=== PATIENT | female | born 1960 | race Caucasian/White ===

== ENCOUNTER 2024-05-22 09:45 | Outpatient (AMB) | payer OTHER, SELFPAY ==
--- NOTE | 2024-05-22 10:02 | A.OFFPC_ITS ---
Vital Signs 05/22/24 10:12 Height 5 ft 5 in Weight 183 lb 6 oz BMI 30.5 BP 120/66 Blood Pressure Location Lt brachial Position Sitting Respiration 14 Pulse 80 Pulse Source Pulse Oximeter Temp 98.4 F Temp Source Oral Pulse Oximetry (%) 97 Oxygen Delivery Method Room Air Intake Visit Reasons: grants and contracts assistant-cough/mammo f/u Intake Note: establish care Is last menstrual period known: No Post menopausal: Yes Patient : No Allergies No Known Allergies Allergy (Verified 05/22/24 10:08) Medication List - Last Reconciled 05/22/24 by [place] MD No Known Home Meds Tobacco use date assessed: 05/22/24 Dental Screening Dental Screen Date: 05/22/24 Did you have a dental visit in the last 12 months?: No Did you have a dental problem in the last 6 months where you did not have access to dental care?: No Was dental information given to patient?: No HPI grants and contracts assistant-cough/mammo f/u HPI Details New Patient? ?? Prior PCP:?Last PCP in [place] Last office visit/CPE:?> 2yrs Acute issue(s):? Hoarseness since 08/28 after a pneumonia Also Chronic Nose Bleeds ?? PMHx:? L ankle and b/L hip pain & arthritis, Chronic nose bleeds SurgHx:? Cholecystectomy 2019 FHx:? Mom: Hypothyroid Dad: COPD, Lymphoma. Siser hypothyroid, Brother: Myesthenia gravis. SocHx:? Pt is a Chiropractor. Nonsmoker. EtOH 1 drink a month. No drugs PFSH Medical History (Updated 05/22/24 @ 11:01 by Chuck Dyer) History of shingles Total body pain Arthritis Nasal bleeding Hoarseness of voice Chronic cough Surgical History (Updated 05/22/24 @ 10:05 by Moriah Garcia CMA) History of cholecystectomy Family History (Updated 05/22/24 @ 10:07 by Moriah Garcia CMA) Mother Hypothyroidism Father COPD (chronic obstructive pulmonary disease) Sister Hypothyroidism Social History (Updated 05/22/24 @ 10:07 by Moriah Garcia CMA) Housing: Apartment Patient Tobacco Use Status: Never used Tobacco e-Cigarette/Vaping Use: Never Used Second Hand Smoke Exposure: No service: No Current occupational status: employed Current occupation: chripractor Current occupational exposures/hazards: No Cognitive needs: No Hearing needs: No Vision needs: Yes Questionnaire PHQ-9 Over the last 2 weeks, how often have you been bothered by any of the following problems? 1. Little interest or pleasure in doing things: not at all 2. Feeling down, depressed, or hopeless: not at all 3. Trouble falling or staying asleep, or sleeping too much: several days 4. Feeling tired or having little energy: more than half the days 5. Poor appetite or overeating: not at all 6. Feeling bad about yourself - or that you are a failure or have let yourself or your family down: not at all 7. Trouble concentrating on things, such as reading the newspaper or watching television: not at all 8. Moving or speaking so slowly that other people could have noticed. Or the opposite - being so fidgety or restless that you have been moving around a lot more than usual: not at all 9. Thoughts that you would be better off or of hurting yourself in some way: not at all Total score: 3 Depression Screening Interpretation: Negative Depression Screening Done: Yes 72049 - PHQ-9 Billing: Yes Source: Developed by Drs. Joe Garza, Pati Mariano, Robi Hopson and colleagues, with an educational sue from [employer]. Thrive Questionnaire Date Thrive assessed: 05/22/24 I am a: Patient What is your living situation today?: I have a steady place to live Within the past 12 months, did the food you bought not last and you didn't have the money to get more?: Never true Within the past 12 months, did you worry whether your food would run out before you got money to buy more?: Never true Do you have trouble paying for medicines?: No Do you have trouble getting transportation to medical appointments?: No Do you have trouble paying your heating and electricity bill?: No Do you have trouble taking care of your child, family member or friend?: No Do you have trouble with day-to-day activities such as bathing, preparing meals, shopping, managing finances, etc.?: No Are you currently unemployed and looking for a job?: No Are you interested in more education?: No Please select the resources that you would like help with: None Currently or been in a relationship where the following occur: No concerns reported THRIVE Score: 0 AUDIT C Alcohol Use Questionnaire (AUDIT-C) 1. How often do you have a drink containing alcohol?: Monthly or less 2. How many drinks containing alcohol do you have on a typical day when you are drinking?: 1 or 2 3. How often do you have six or more drinks on one occasion?: Never Total Score: 1 MEETA-7 AMB Questionnaire MEETA-7 Date MEETA - 7 assessed: 05/22/24 Feeling nervous, anxious, or on edge: 0 = Not at all Not being able to stop or control worryin = Not at all Worrying too much about different things: 0 = Not at all Trouble relaxin = Not at all Being so restless that it is hard to sit still: 0 = Not at all Becoming easily annoyed or irritable: 0 = Not at all Feeling afraid as if something awful might happen: 0 = Not at all Total MEETA-7 score (0-4 normal; 5-9 mild; 10-14 moderate; 15-21 severe): 0 Source: Developed by Drs. Joe Garza, Pati Mariano, Robi Hopson and colleagues, with an educational sue from [employer]. Review of Systems Const Denies chills, Denies fatigue, Denies fever(s), Denies headache(s) and Denies weakness ENT Denies dizziness and Denies headache(s) Card Denies chest pain, Denies lightheadedness, Denies dyspnea and Denies other (Palpitations) Resp Reports cough, Denies dyspnea and Denies wheezing Musc Denies numbness and Denies tingling Neuro Denies dizziness, Denies headache(s), Denies numbness, Denies tingling, Denies paresthesias and Denies weakness Psych Denies anxiety and Denies depression Endo Denies fatigue Aller/Immun Denies wheezing Physical exam (Primary Care) Vital Signs: Last Vital Signs Temp 98.4 F 05/22/24 10:12 Pulse 80 05/22/24 10:12 Resp 14 05/22/24 10:12 BP 120/66 05/22/24 10:12 Pulse Ox 97 05/22/24 10:12 Oxygen Delivery Method Room Air 05/22/24 10:12 BMI result Body Mass Index 30.5 Tobacco/Smoking Status: Tobacco use Status Tobacco use date assessed 05/22/24 05/22/24 10:16 Patient Tobacco Use Status Never used Tobacco 05/22/24 10:16 e-Cigarette/Vaping Use Never Used 05/22/24 10:16 PHQ-9: PHQ-9 Score PHQ-9: Total score 3 05/22/24 10:40 Depression Screening Interpretation: Negative Thrive Assessment: Date of Thrive Assessment Date Thrive assessed 05/22/24 05/22/24 10:16 Currently or been in a relationship where the following occur: No concerns reported Const General: no acute distress and well developed Nutritional Appearance: well nourished Orientation/consciousness: patient oriented x3 HENMT Head: Yes normocephalic and Yes atraumatic Eyes General: appearance normal, both eyes and all related structures Pupils: Equal, round and reactive pupils present EOM: EOMs intact bilaterally Resp Effort & Inspection: normal respiratory effort Auscultation: clear to auscultation bilaterally Cardio Rate: regular rate Rhythm: regular rhythm Heart sounds: S1 normal heart sound present, S2 normal heart sound present, no gallops, no murmurs and no rubs Neuro General: patient oriented x3 and gait normal Cranial nerves: Yes Equal, round and reactive pupils present Psych Affect: normal affect Coding Level of Care Code New Pt Level 3 (05982) Diagnoses Chronic cough R05.3 Hoarseness of voice R49.0 Left ankle pain M25.572 Bilateral hip pain M25.551; M25.552 Nasal bleeding R04.0 Fatigue R53.83 Breast cancer screening by mammogram Z12.31 Laboratory exam ordered as part of routine general medical examination Z00.00 Additional Codes PHQ-9 - 62538 - PHQ-9 Billing: Yes ([id number]) Assessment & Plan Assessment & Plan (1) Chronic cough: Code(s): R05.3 - Chronic cough Category: Medical Plan: Patient?notes?chronic?cough?and?hoarseness Encouraged?increased?hydration?and?humidified?air Can?try?a?daytime? antihistamine?although?she?is?not?inclined?to?use?p.o.?medications. Referred?to?ENT?at?patient?request (2) Hoarseness of voice: Code(s): R49.0 - Dysphonia Category: Medical Plan: As?above (3) Left ankle pain: Code(s): M25.572 - Pain in left ankle and joints of left foot Category: Medical (4) Bilateral hip pain: Code(s): M25.551 - Pain in right hip; M25.552 - Pain in left hip Category: Medical Plan: Bilateral posterolateral?hip?and?buttocks?pain?and?also?left?ankle?pain. Checking?inflammatory?markers Checking?x-rays?of?lumbar?spine,?hips?left?ankle Patient?requests?referral?to?Ortho-made (5) Nasal bleeding: Code(s): R04.0 - Epistaxis Category: Medical Plan: As?above (6) Fatigue: Code(s): R53.83 - Other fatigue Category: Medical Plan: Checking?inflammatory?markers?for?this?as?well?as?joint?pain?in?hips?and?ankle Will?also?check?Lyme?titer (7) Breast cancer screening by mammogram: Code(s): Z12.31 - Encounter for screening mammogram for malignant neoplasm of breast Category: Medical Plan: Last?mammogram?over?2?years?ago?and?she?did?require?additional?views?after?which ?she?was?told?to?resume?annual?screening. Mammogram?ordered (8) Laboratory exam ordered as part of routine general medical examination: Code(s): Z00.00 - Encounter for general adult medical examination without abnormal findings Category: Medical Plan: Check labs Plan . Orders: Orders Comprehensive Burton. Panel Fast Today Z00.00 - Encounter for general adult med ical examination without abnormal findings Homocysteine Today M25.551 - Pain in right hip, M25.552 - Pain in left hip Rheumatoid Factor Today M25.551 - Pain in right hip, M25.552 - Pain in left hip Thyroid Stimulating Hormone Today E03.9 - Hypothyroidism, unspecified, M25.551 - Pain in right hip, M25.552 - Pain in left hip Free T4 (Free Thyroxine) Today E03.9 - Hypothyroidism, unspecified, M25.551 - Pain in right hip, M25.552 - Pain in left hip XR ankle LT 2V Today M25.572 - Pain in left ankle and joints of left foot Complete Blood Count Auto Diff Today Z00.00 - Encounter for general adult medical examination without abnormal findings Lipid Panel Today Z00.00 - Encounter for general adult medical examination without abnormal findings Microalbumin, Random (w Creat) Today I10 - Essential (primary) hypertension UA and rflx microscopic Today Z00.00 - Encounter for general adult medical examination without abnormal findings Vitamin D 25-OH Total Today E55.9 - Vitamin D deficiency, unspecified Hemoglobin A1c Today R73.01 - Impaired fasting glucose MM tomosynthesis screening BI Today Z12.31 - Encounter for screening mammogram for malignant neoplasm of breast Lyme IgG/IgM w/reflex to WB Today R53.83 - Other fatigue Erythrocyte Sedimentation Rate Today M25.551 - Pain in right hip, M25.552 - Pain in left hip Cyclic Citrullinated Peptide Today M25.551 - Pain in right hip, M25.552 - Pain in left hip Triiodothyronine T3 Total Today E03.9 - Hypothyroidism, unspecified, M25.551 - Pain in right hip, M25.552 - Pain in left hip XR lumbar spine 2-3V Today M25.551 - Pain in right hip, M25.552 - Pain in left hip XR hip BI w PEL 1V Today M25.551 - Pain in right hip, M25.552 - Pain in left hip Referrals Ear/Nose/Throat Referral R04.0 - Epistaxis, R49.0 - Dysphonia Orthopedics Referral M25.551 - Pain in right hip, M25.552 - Pain in left hip, M25.572 - Pain in left ankle and joints of left foot
[2024-05-22 10:12] VITALS: BP 120/66; PULSE 80; RESP 14; TEMP 36.9; O2SAT 97; BMI 30.5
== END 2024-05-22 11:28 | disposition home or self-care (01) ==
PROVIDERS: PCP Family Medicine; Visit Provider Family Medicine
DX: R05.3 Chronic cough (principal); R49.0 Dysphonia; M25.572 Pain in left ankle and joints of left foot; M25.551 Pain in right hip; M25.552 Pain in left hip; R04.0 Epistaxis; R53.83 Other fatigue; Z12.31 Encounter for screening mammogram for malignant neoplasm of breast

== ENCOUNTER 2024-05-22 11:13 | Outpatient (REF) | payer OTHER, SELFPAY ==
[2024-05-22 14:01] LABS: MANUAL DIFF FLAG NO
[2024-05-22 14:10] LABS: Basophils Absolute Auto 0.1 X10*3/uL (0.0-0.2); Basophils Percent Auto 0.9 % (0-2); Eosinophils Absolute Auto 0.2 X10*3/uL (0.0-0.4); Eosinophils Percent Auto 1.7 % (0-4); Hematocrit 47.1 % (37.0-47.0); Hemoglobin 15.2 g/dl (12.0-16.0); Imm Gran Abs Auto 0.07 X10*3/uL (0.00-0.03); Imm Gran Pct Auto 0.8 % (0.0-0.4); Lymphocytes Absolute Auto 2.5 X10*3/uL (1.2-4.9); Lymphocytes Percent Auto 27.4 % (20-40); Mean Corpuscular HGB Conc 32.3 g/dl (31.0-35.0); Mean Corpuscular Volume 89.7 fL (80.0-98.0); Mean Platelet Volume 8.9 fL (9.4-12.3); Monocytes Absolute Auto 0.8 X10*3/uL (0.1-1.2); Monocytes Percent Auto 9.1 % (2-11); Neutrophils Absolute Auto 5.5 x10*3/uL (2.0-8.3); Neutrophils Percent Auto 60.1 % (45-73); Platelet Count 391 X10*3/uL (160-400); Red Blood Count 5.25 X10*6/uL (4.20-5.50); White Blood Count 9.1 X10*3/uL (4.8-10.8)
[2024-05-22 14:18] LABS: Estimated Average Glucose 120 mg/dL; Hemoglobin A1c % 5.8 % (<6.0)
[2024-05-22 14:33] LABS: Alanine Aminotransferase 36 U/L (0-31); Albumin Level 4.2 g/dL (3.5-5.0); Alkaline Phosphatase 83 U/L (39-117); Anion Gap 11 (12-20); Aspartate Amino Transferase 32 U/L (5-31); Bilirubin Total 0.4 mg/dL (0.0-1.0); Blood Urea Nitrogen 12 mg/dL (9-16); Calcium 9.3 mg/dL (8.4-10.2); Carbon Dioxide 26 mmol/L (22-29); Chloride 108 mmol/L (96-108); Cholesterol 246 mg/dL (<200); Estimated Glomerular Filt Rate > 60; Glucose Fasting 89 mg/dL (60-99); HDL Cholesterol 51 mg/dL (>40); LDL Cholesterol Calculated 155 mg/dL (<100); Sodium 141 mmol/L (135-145); Triglycerides 203 mg/dL (<150)
[2024-05-22 14:34] LABS: Creatinine Urine 90.55 mg/dL; Microalbumin Urine < 5.0 mg/L
[2024-05-22 14:36] LABS: Appearance Urine Clear; Color Urine Yellow; Glucose Urine UA Negative (Negative); Leukocyte Esterase Urine Negative (Negative); Nitrite Urine Negative (Negative); Urine Blood Negative (Negative); Urine Ketones Negative (Negative); Urine Protein Negative (Neg-Trace)
[2024-05-22 14:49] LABS: Vitamin D 25-OH Total 61.3 ng/mL (>30)
[2024-05-23 22:24] LABS: Lyme Abs Screen <0.90 index
== END 2024-05-22 11:14 | disposition home or self-care (01) ==
LOC: HO.WFDLDS 11:13
PROVIDERS: Visit Provider Family Medicine
DX: Z00.00 Encounter for general adult medical examination without abnormal findings (principal); I10 Essential (primary) hypertension; R53.83 Other fatigue; E55.9 Vitamin D deficiency, unspecified; R73.01 Impaired fasting glucose
CPT/HCPCS: 36415; 80053; 80061; 81003; 82043; 82306; 82570; 83036; 85025; 86617; 86618

== ENCOUNTER 2024-06-14 09:14 | Outpatient (REF) | payer OTHER, SELFPAY ==
--- NOTE | ~2024-06-14 | XR_ITS ---
CLINICAL HISTORY: M25.551 - Pain in right hip 3 views lumbar spine Comparison: None Findings: Normal vertebral body alignment. No acute fractures or dislocation. No significant degenerative change. IMPRESSION: No acute findings. This document has been electronically signed by: Tyson Dobson MD on 06/17/2024 06:27:30
--- NOTE | ~2024-06-14 | XR_ITS ---
CLINICAL HISTORY: M25.572 - Pain in left ankle and joints of left foot 3 view left ankle Comparison: None Findings: No acute fracture or dislocation is identified. Soft tissue structures appear intact. IMPRESSION: 1. No acute abnormality is identified. This document has been electronically signed by: Shakira Low on 06/17/2024 09:02:45
--- NOTE | ~2024-06-14 | XR_ITS ---
CLINICAL HISTORY: Right hip pain. 2 view, pelvis and right hip Comparison: CR - XR HIP LT MIN 2V - 06/14/24 09:38 EST CR - XR LUMBAR SPINE 2-3V - 06/14/24 09:30 EST Findings: No acute fracture or dislocation. There are relatively severe degenerative changes associated with generalized joint space narrowing more significant superiorly. The soft tissues are unremarkable. IMPRESSION: Relatively severe osteoarthritic changes with joint space narrowing particularly superiorly. No acute abnormalities are noted. This document has been electronically signed by: Tyson Dobson MD on 06/17/2024 06:28:03
--- NOTE | ~2024-06-14 | XR_ITS ---
CLINICAL HISTORY: Pain in left hip. 2 view eft hip Comparison: None Findings: There is mild left hip joint space narrowing. No dislocation. There is mild subchondral sclerosis and osteophyte formation of the left femoral head and acetabulum. No acute fractures IMPRESSION: Osteoarthrosis left hip This document has been electronically signed by: Joe Dimas MD on 06/17/2024 08:42:57
[2024-06-14 11:36] LABS: Rheumatoid Factor < 13.0 IU/mL (<15.0)
[2024-06-14 11:55] LABS: Erythrocyte Sedimentation Rate 5 MM/HR (0-20)
[2024-06-14 11:57] LABS: Free T4 (Free Thyroxine) 0.99 ng/dL (0.71-1.85); Thyroid Stimulating Hormone 3.39 uIU/mL (0.32-4.0)
[2024-06-15 08:58] LABS: Triiodothyronine T3 Total 130 ng/dL (76-181)
[2024-06-16 18:39] LABS: Thyroid Peroxidase Antibodies 111 IU/mL (<9)
[2024-06-17 13:48] LABS: Cyclic Citrullinated Peptide <16 UNITS
== END 2024-06-14 09:15 | disposition home or self-care (01) ==
LOC: HO.HMGCX 09:14
PROVIDERS: PCP Family Medicine; Visit Provider Family Medicine
DX: M25.551 Pain in right hip (principal); M25.552 Pain in left hip; E03.9 Hypothyroidism, unspecified; R53.83 Other fatigue; M25.572 Pain in left ankle and joints of left foot
CPT/HCPCS: 36415; 72100; 73502; 73610; 84439; 84443; 84480; 85652; 86200; 86376; 86431

== ENCOUNTER → 2024-06-14 09:18 | Outpatient (BNV) | payer OTHER, SELFPAY | PROVIDERS: PCP Family Medicine; Visit Provider Radiology Diagnostic Radiology | DX: M25.551 Pain in right hip (principal) | CPT/HCPCS: 72100; 73502 ==

== ENCOUNTER 2024-06-17 09:26 | Outpatient (AMB) | payer OTHER, SELFPAY ==
--- NOTE | 2024-06-17 09:41 | MHC.OFFVIS ---
Vital Signs 06/17/24 09:47 Height 5 ft 5 in Weight 183 lb BMI 30.4 Handedness Right Intake Visit Reasons: New Pt - B/L hip pain Intake Note: Anitra is a 63 year old female who presents today as a new patient for a evaluation of her bilateral hip pain. Patient reports off and on pain for about 10 years. Patient informed me that on 2018 her pain had gotten worse. She states that her right hip is worse than her left hip. Patient notices that her pain is worse when she is on her feet all day at work. Her pain is located on the glutes. Patient has tried and failed Advil. Allergies No Known Allergies Allergy (Verified 06/17/24 09:47) HPI HPI New Pt - B/L hip pain: Details: Ms. 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 She reports that in 2018 she did see an orthopedic surgeon who recommended total hip arthroplasty as she had developed significant osteoarthritis. Over the past few years her pain has become more consistent. However, she is still able to perform most of her daily activities without discomfort or with the use of anti-inflammatories as needed. Standing for long periods of time 10 to increase her pain. She did switch jobs and is on a different helena which she believes is attributing to an increase in pain. [facility] Medical History (Updated 06/17/24 @ 10:42 by Laura Mcrcary PA-C) History of shingles Total body pain Arthritis Nasal bleeding Hoarseness of voice Chronic cough Surgical History (Updated 05/22/24 @ 10:05 by Moriah Garcia CMA) History of cholecystectomy Family History (Updated 05/22/24 @ 10:07 by Moriah Garcia CMA) Mother Hypothyroidism Father COPD (chronic obstructive pulmonary disease) Sister Hypothyroidism Social History Housing: Apartment Patient Tobacco Use Status: Never used Tobacco e-Cigarette/Vaping Use: Never Used Second Hand Smoke Exposure: No service: No Current occupational status: employed Current occupation: chripractor Current occupational exposures/hazards: No Cognitive needs: No Hearing needs: No Vision needs: Yes Review of Systems Const All systems reviewed & are unremarkable except as noted in HPI and below Physical Exam Vital Signs: BMI result Body Mass Index 30.4 Const General: cooperative, healthy appearing and no acute distress Resp Effort & Inspection: normal respiratory effort and able to speak in complete sentences Cardio Rate: regular rate Peripheral pulses: Peripheral pulses 2+ throughout Skin Lesions: no lesions Rashes: no rashes Extrem Other: Right hip: Limited internal external rotation with pain on the lateral aspect of the hip. Able to perform straight leg raise. NVI. Left hip: Minimal limitations with internal external rotation. Able to perform straight leg raise. NVI. Assessment & Plan Assessment & Plan (1) Osteoarthritis, hip, bilateral: Code(s): M16.0 - Bilateral primary osteoarthritis of hip Category: Medical Plan Ms. 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 She reports that in 2018 she did see an orthopedic surgeon who recommended total hip arthroplasty as she had developed significant osteoarthritis. Over the past few years her pain has become more consistent. However, she is still able to perform most of her daily activities without discomfort or with the use of anti-inflammatories as needed. Standing for long periods of time 10 to increase her pain. She did switch jobs and is on a different helena which she believes is attributing to an increase in pain. While in the office today we did discuss the role of cortisone injection and surgical intervention. The right hip is more painful for the patient I would likely need intervention sooner than the left. However, the patient reports that she is able to perform most daily activities without difficulty and with the assistance of anti-inflammatories. Therefore, we have elected to hold off on cortisone injection and surgical intervention at this time. I recommended physical therapy. The patient did request information in regards to restorative yoga which I do think would be helpful. The patient also reports that she is going to be moving in July and will be out of the area. She may follow up with me p.r.n., sooner if needed. X-rays of the bilateral hips which were obtained on 06/14/2024 and were reviewed by me, Laura Mccrary PA-C, revealed bilateral hip osteoarthritis right greater than left. Coding Level of Care Code New Pt Level 4 (62063) Diagnoses Osteoarthritis, hip, bilateral M16.0
[2024-06-17 09:47] VITALS: BMI 30.4
== END 2024-06-17 10:10 | disposition home or self-care (01) ==
PROVIDERS: PCP Family Medicine; Visit Provider Physician Assistant
DX: M16.0 Bilateral primary osteoarthritis of hip (principal)
CPT/HCPCS: 99204

== ENCOUNTER → 2024-06-17 09:26 | Outpatient (BNVA) | payer OTHER, SELFPAY | PROVIDERS: PCP Family Medicine; Visit Provider Physician Assistant | DX: M16.0 Bilateral primary osteoarthritis of hip (principal) | CPT/HCPCS: 99202 ==